=== PATIENT | male | born 1975 | race Caucasian/White ===

== ENCOUNTER 2022-02-06 18:38 | Emergency (ER) | payer SELFPAY ==
[~2022-02-06] VITALS: Ht 157.5 cm; Wt 59.0 kg
[2022-02-06 18:38] VITALS: BP_SYST 131
[2022-02-06 19:05] VITALS: BP_SYST 131
== END 2022-02-06 19:05 ==
LOC: SED 18:38
DX: Z04.1 Encounter for examination and observation following transport accident (principal); V49.49XA Driver injured in collision with other motor vehicles in traffic accident, initial encounter; Y93.89 Activity, other specified; Y92.89 Other specified places as the place of occurrence of the external cause; Y99.8 Other external cause status
CPT/HCPCS: 99283